=== PATIENT | male | born 1980 | race Two or more races ===

== ENCOUNTER 2019-10-06 16:00 | Inpatient (IN) | payer SELFPAY ==
[~2019-10-06] VITALS: Ht 177.8 cm; Wt 84.8 kg
[2019-10-06] MEDS ORDERED: cloNIDine HCL 0.1 MG TAB ONE (16:18)
[2019-10-06] MEDS ORDERED: SODIUM CHLORIDE 0.9% 1,000 ML IV ONE (16:21)
[2019-10-06] MEDS ORDERED: cloNIDine HCL 0.1 MG TAB PO ONE (16:30)
[2019-10-06 16:33] LABS: Basophils # (auto) 0.1 10 ^3/uL (0-0.2); Basophils % (auto) 0.7 % (0.0-2.0); Eosinophils # (auto) 0.2 10 ^3/uL (0-0.8); Eosinophils % (auto) 1.4 % (0.0-7.0); Hematocrit 33.3 % (41.0-53.0); Hemoglobin 10.8 g/dL (13.5-17.5); Lymphocytes # (auto) 0.9 10 ^3/uL (0.4-5.4); Mean Corpuscular Hemoglobin 29.8 pg (28.0-32.0); Mean Corpuscular Hgb Conc. 32.3 g/dL (32.0-36.0); Mean Corpuscular Volume 92.2 fL (80.0-100.0); Monocytes # (auto) 0.5 10 ^3/uL (0-1.3); Monocytes % (auto) 3.9 % (0.0-12.0); Neutrophils # (auto) 10.7 10 ^3/uL (1.6-8.6); Nucleated Red Blood Cells % 0.1 %; Platelet Count (auto) 290 10^3/uL (140-450); Red Blood Cells 3.61 10^6/uL (4.5-5.90); Red Cell Distribution Width 16.5 % (11.8-14.3); White Blood Cell 12.3 10^3/uL (4.4-10.8)
[2019-10-06 16:48] LABS: Albumin 3.6 g/dL (3.4-5.0); Calcium 8.4 mg/dL (8.5-10.1); Potassium 3.9 mmol/L (3.5-5.1)
[2019-10-06 16:54] LABS: BUN/Creatinine Ratio 11.6; Bilirubin, Total 1.2 mg/dL (0.2-1.0); Total Protein 7.5 g/dL (6.4-8.2)
[2019-10-06] MEDS ORDERED: LORazepam 0.5 MG TAB PO PRN (17:30)
[2019-10-06] MEDS ORDERED: ALUM & MAG HYDROX-SIMETH LIQ(MAALOX) 30 ML PO ONE (17:30)
[2019-10-06] MEDS ORDERED: MORPHINE SULFATE 4 MG/ML SYR/VIAL IV PRN (17:30)
[2019-10-06] MEDS ORDERED: ONDANSETRON HCL 4 MG/2 ML VIAL IV PRN ×2 (17:30→17:45)
[2019-10-06] MEDS ORDERED: NITROGLYCERIN 0.4 MG SL TAB SL PRN ×3 (17:30→17:45)
[2019-10-06] MEDS ORDERED: MORPHINE SULF INJ 2 MG/ML SYRINGE 1ML IV PRN ×3 (17:30→17:45)
[2019-10-06] MEDS ORDERED: HYDROcodone-ACET 5/325MG TAB PO PRN (17:45)
[2019-10-06 17:59] LABS: INR 1.04 (0.9-1.15)
[2019-10-06 18:40] LABS: Uric Acid 11.5 mg/dL (3.5-7.2)
[2019-10-06 20:09] LABS: Urine Bacteria FEW /hpf (None Seen); Urine Blood Negative /uL (Negative); Urine Specific Gravity 1.008 (1.001-1.035); Urine WBC 4 /hpf (0 - 3)
[2019-10-06] MEDS: cloNIDine HCL 0.1 MG TAB PO PRN (20:47)
[2019-10-06] MEDS ORDERED: METOPROLOL TARTRATE 25 MG TAB PO SCH (22:00)
[2019-10-06] MEDS ORDERED: ATORVASTATIN 20 MG TAB PO SCH (22:00)
--- NOTE | 2019-10-06 22:15 | NUR ---
Opening Shift Note Assumed care of patient, awake and alert, oriented x 4, follows direction, clear speech. On oxygen at 2L via NC with even and unlabored respirations, no S/S of distress/SOB. Patient denies chest pain. Bed in lowest locked position with side rails up x 2 and call light within reach. Instructed on POC and to call for assist PRN, will continue to monitor for changes Q1hr and PRN.
[2019-10-06] MEDS: ATORVASTATIN 20 MG TAB PO SCH (22:22)
[2019-10-06] MEDS: hydrALAZINE HCL 25 MG TAB PO SCH (22:23)
[2019-10-06] MEDS: FAMOTIDINE 20 MG TAB PO SCH (22:24)
[2019-10-06] MEDS: LABETALOL HCL 200 MG TAB PO SCH (22:24)
[2019-10-06 22:30] VITALS: BP 144/95
[2019-10-07 00:21] VITALS: BP 144/95
[2019-10-07] MEDS ORDERED: HYDR50TA15 PO (00:25)
[2019-10-07] MEDS ORDERED: METO-462 PO (00:25)
[2019-10-07] MEDS ORDERED: FURO1TAB33 PO (00:25)
[2019-10-07 05:00] VITALS: BP 136/87
[2019-10-07] MEDS: hydrALAZINE HCL 25 MG TAB PO SCH ×3 (05:57→21:43)
[2019-10-07 06:22] LABS: Potassium 3.7 mmol/L (3.5-5.1)
[2019-10-07 06:33] LABS: BUN/Creatinine Ratio 12.2; Calcium 7.5 mg/dL (8.5-10.1)
--- NOTE | 2019-10-07 06:57 | NUR ---
closing note patient resting in bed with even and unlabored respirations, noted chest rise and fall. no s/s of distress.
--- NOTE | 2019-10-07 07:30 | NUR ---
Opening Shift Note RECEIVED REPORT FROM NOC RN. Assumed care of patient, awake and alert. PATIENT IS ON OXYGEN AT 2 LPM VIA NASAL CANNULA WITH no S/S of distress/SOB or pain. BED IN LOWEST, LOCKED POSITION WITH SIDERAILS UP x2 AND CALL LIGHT WITHIN REACH. Instructed on POC and to call for assist PRN, will continue to monitor for changes Q1hr and PRN.
[2019-10-07 09:00] VITALS: BP 157/99
[2019-10-07] MEDS: LABETALOL HCL 200 MG TAB PO SCH ×2 (09:39→21:44)
[2019-10-07] MEDS: ASPirin-EC 81 mg tab PO SCH (09:39)
[2019-10-07] MEDS ORDERED: CLOPIDOGREL BISULFATE 75 MG TAB PO SCH (10:00)
[2019-10-07] MEDS ORDERED: DOCUSATE SOD 100 MG CAP PO SCH (10:00)
[2019-10-07] MEDS ORDERED: ASPirin 81 mg TAB PO SCH (10:00)
[2019-10-07] MEDS ORDERED: LISINOPRIL 20 MG TAB PO SCH (10:00)
[2019-10-07 13:00] VITALS: BP 152/96
[2019-10-07] MEDS ORDERED: ISOSORBIDE MONONITRATE ER 60 MG TAB PO ONE (14:15)
--- NOTE | 2019-10-07 14:20 | NUR ---
D/C Planning Per SS consult for outpatient dialysis Chair Time with [facility]. Faxed clinical information to [facility]. Placed call to Daysi with [facility] advising her Med-Renny is pending and provided her with Alfred phone number to get updates. Pending Chair Time.
[2019-10-07 14:46] LABS: Hepatitis B Surface Antibody Negative
[2019-10-07 15:24] LABS: Hepatitis A Total Antibody Positive
[2019-10-07 15:43] LABS: Hepatitis B Surface Antigen Negative (Negative)
[2019-10-07 15:44] LABS: Hepatitis B Core Total AB Negative; Hepatitis C Antibody Negative (Negative)
[2019-10-07 16:49] VITALS: BP 161/102
--- NOTE | 2019-10-07 18:06 | NUR ---
RECORDS REQUEST FAXED TO [employer] AT [facility].
[2019-10-07] MEDS: CALCIUM ACETATE 667 MG CAP PO SCH (18:27)
[2019-10-07] MEDS: ATORVASTATIN 20 MG TAB PO SCH (21:43)
[2019-10-07] MEDS: FAMOTIDINE 20 MG TAB PO SCH (21:43)
[2019-10-07 22:00] VITALS: BP 162/97
[2019-10-08 05:00] VITALS: BP_SYST 144; BP_SYST 184; BP_DIAS 111; BP_DIAS 79
[2019-10-08] MEDS: hydrALAZINE HCL 25 MG TAB PO SCH ×3 (05:16→21:53)
[2019-10-08 05:58] LABS: Basophils # (auto) 0 10 ^3/uL (0-0.2); Basophils % (auto) 0.4 % (0.0-2.0); Eosinophils # (auto) 0.1 10 ^3/uL (0-0.8); Eosinophils % (auto) 1.5 % (0.0-7.0); Hematocrit 25.6 % (41.0-53.0); Hemoglobin 8.5 g/dL (13.5-17.5); Lymphocytes % (auto) 10.3 % (10.0-50.0); Mean Corpuscular Hemoglobin 30.6 pg (28.0-32.0); Mean Corpuscular Hgb Conc. 33.1 g/dL (32.0-36.0); Mean Corpuscular Volume 92.5 fL (80.0-100.0); Monocytes # (auto) 0.5 10 ^3/uL (0-1.3); Monocytes % (auto) 5.5 % (0.0-12.0); Neutrophils # (auto) 7.8 10 ^3/uL (1.6-8.6); Neutrophils % (auto) 82.3 % (37.0-80.0); Platelet Count (auto) 228 10^3/uL (140-450); Red Blood Cells 2.76 10^6/uL (4.5-5.90); White Blood Cell 9.5 10^3/uL (4.4-10.8)
[2019-10-08 06:09] VITALS: BP 164/106
[2019-10-08] MEDS: cloNIDine HCL 0.1 MG TAB PO PRN ×2 (06:13→23:38)
[2019-10-08 06:32] LABS: Potassium 3.5 mmol/L (3.5-5.1)
[2019-10-08 06:49] LABS: Albumin 2.8 g/dL (3.4-5.0); BUN/Creatinine Ratio 12.3; Bilirubin, Total 0.5 mg/dL (0.2-1.0); Calcium 7.3 mg/dL (8.5-10.1); Magnesium 2.6 mg/dL (1.6-2.6); Total Protein 6.2 g/dL (6.4-8.2)
[2019-10-08] MEDS ORDERED: SODIUM CHL 0.9% 1000 ML BAG XX ONE (07:00)
--- NOTE | 2019-10-08 07:45 | NUR ---
OPENING NOTES ASSUMED CARE OF PT. ALERT AND ORIENTED. NO S/S OF SOB/DISTRESS NOTED. BED SET TO LOWEST POSITION/LOCKED. BEDSIDE RAILS UP X2. CALL LIGHT WITHIN REACH. INSTRUCTED PT TO CALL FOR ASSISTANCE. UPDATE ON POC. PT VERBALIZED UNDERSTANDING. WILL CONTINUE TO MONITOR Q1HR AND PRN.
[2019-10-08] MEDS: CALCIUM ACETATE 667 MG CAP PO SCH ×3 (08:00→18:40)
[2019-10-08] MEDS: BUMETANIDE 2.5mg/10ml (0.25 mg/ml) INJ IV SCH (08:56)
[2019-10-08] MEDS: ASPirin-EC 81 mg tab PO SCH (08:57)
[2019-10-08] MEDS: B-COMPLEX W/ C & FOLIC ACID(NEPHROVITE TAB) PO SCH (08:57)
[2019-10-08] MEDS ORDERED: LIDOCAINE 2%HCL (LOCAL ANESTH.) INJ 20ML MDV ONE (08:57)
[2019-10-08] MEDS: LABETALOL HCL 200 MG TAB PO SCH (08:58)
[2019-10-08] MEDS: ALLOPURINOL 100 MG TAB PO SCH (08:59)
[2019-10-08 09:00] VITALS: BP 167/119
[2019-10-08] MEDS: ISOSORBIDE MONONITRATE ER 60 MG TAB PO SCH (09:00)
--- NOTE | 2019-10-08 09:24 | NUR ---
OFF UNIT PATIENT OFF UNIT VIA BED TO ACCESS CLINICIAN. NO S/S OF SOB/DISTRESS.
[2019-10-08] MEDS ORDERED: HEPARIN SODIUM (PORCINE) 5000 UNITS/ML 1ML VIAL ONE (09:47)
[2019-10-08] MEDS ORDERED: fentaNYL CITRATE 100 MCG/2 ML VL ONE (09:47)
[2019-10-08] MEDS ORDERED: MIDAZOLAM HCL 1MG/1ML-2 ML VIAL ONE (09:47)
[2019-10-08 12:58] VITALS: BP 161/99
--- NOTE | 2019-10-08 13:20 | NUR ---
MEDICAL RECORDS FROM [facility] IN PATIENTS CHART.
[2019-10-08] MEDS: ERGOCALCIFEROL 50,000 UNIT(1.25MG) CAP PO SCH (14:01)
[2019-10-08] MEDS ORDERED: CARVEDILOL 3.125 MG TAB PO ONE (14:15)
[2019-10-08 16:55] VITALS: BP 164/115
[2019-10-08] MEDS ORDERED: LACTULOSE 20Gm/30ML SOLN PO PRN (18:30)
--- NOTE | 2019-10-08 19:26 | NUR ---
Opening Shift Note Assumed care of patient, awake and alert. No S/S of distress/SOB or pain. Patient on 2L NC and tolerating well SPO2 98%. Patient has no complaints at this time. Instructed on POC and to call for assistance PRN, will continue to monitor for changes Q1hr and PRN. Safety precautions maintained bed is in lowest position and bed rails 2x. Call light and bedside table are within reach.
--- NOTE | 2019-10-08 20:18 | NUR ---
Hemodialysis orders changed Per [facility] dialysis coordinator, Dr. Fried states that hemodialysis will be rescheduled for tomorrow morning. Made charge nurse aware. At this time patient has no s/s of distress or SOB. Will continue to monitor Q1 and PRN.
[2019-10-08] MEDS ORDERED: EPOETIN ALFA 4,000 UNIT/ML VL SC ONE (21:00)
[2019-10-08] MEDS: ATORVASTATIN 20 MG TAB PO SCH (21:54)
[2019-10-08] MEDS: FAMOTIDINE 20 MG TAB PO SCH (21:54)
[2019-10-08] MEDS: CARVEDILOL 3.125 MG TAB PO SCH (21:54)
[2019-10-08] MEDS: DOCUSATE SOD 100 MG CAP PO SCH (21:54)
[2019-10-08 22:00] VITALS: BP 178/118
--- NOTE | 2019-10-08 23:38 | NUR ---
Elevated blood pressure Patient BP 180/122 HR 79 SPO2 98%, no complaints of pain. Medicated per MD orders, PRN clonidine. Patient is on 2L NC and tolerating well. At this time no s/s of distress or SOB. Will continue to monitor Q1 and PRN.
[2019-10-09] VITALS (7 sets, daily range): BP systolic 153–189; BP diastolic 88–125
--- NOTE | 2019-10-09 00:30 | NUR ---
Blood Pressure Reassessment BP 153/93 HR 73 SPO2 98%, no complaints of pain at this time. Patient has no s/s of distress or SOB. Will continue to monitor Q1 and PRN. Call light and bedside table are within reach.
--- NOTE | 2019-10-09 02:50 | NUR ---
Rounding Patient resting in bed, has no s/s of distress or SOB. Patient responsive to name and has no complaints at this time. Patient on 2L NC SPO2 98%, and tolerating well. Will continue to monitor Q1 and PRN.
[2019-10-09 05:43] LABS: BUN/Creatinine Ratio 11.9; Calcium 7.6 mg/dL (8.5-10.1); Potassium 3.8 mmol/L (3.5-5.1)
[2019-10-09] MEDS: hydrALAZINE HCL 25 MG TAB PO SCH ×3 (06:00→22:13)
[2019-10-09] MEDS ORDERED: SODIUM CHL 0.9% 1000 ML BAG XX ONE (07:00)
--- NOTE | 2019-10-09 07:18 | NUR ---
End of Shift Note Endorsed care to Tiffanie OSULLIVAN. Patient has no s/s of distress or SOB. Patient awakens to name.
[2019-10-09 07:52] LABS: Hemoglobin 8.4 g/dL (13.5-17.5)
[2019-10-09 07:55] LABS: Hematocrit 25.1 % (41.0-53.0)
--- NOTE | 2019-10-09 08:00 | NUR ---
Opening Shift Note Assumed care of patient, who is alert and oriented x4. No S/S of distress/SOB or pain. Bed is low, locked with 2x side rails up. Call light is within reach. Instructed on POC and to call for assist PRN, will continue to monitor for changes Q1hr and PRN.
[2019-10-09 08:05] LABS: % Iron Saturation 16.3 % (20-55)
--- NOTE | 2019-10-09 09:47 | NUR ---
Dialysis nurse At bedside.
[2019-10-09] MEDS: ALLOPURINOL 100 MG TAB PO SCH (10:00)
[2019-10-09] MEDS ORDERED: LOSARTAN POTASSIUM 50 MG TAB PO ONE (13:00)
--- NOTE | 2019-10-09 13:15 | NUR ---
Dialysis 2.5 L out.
[2019-10-09] MEDS: BUMETANIDE 2.5mg/10ml (0.25 mg/ml) INJ IV SCH (13:20)
[2019-10-09] MEDS: ISOSORBIDE MONONITRATE ER 60 MG TAB PO SCH (13:20)
[2019-10-09] MEDS: CARVEDILOL 3.125 MG TAB PO SCH (13:21)
[2019-10-09] MEDS: DOCUSATE SOD 100 MG CAP PO SCH ×2 (13:21→22:12)
[2019-10-09] MEDS: B-COMPLEX W/ C & FOLIC ACID(NEPHROVITE TAB) PO SCH (13:22)
[2019-10-09] MEDS: ASPirin-EC 81 mg tab PO SCH (13:22)
[2019-10-09] MEDS: CALCIUM ACETATE 667 MG CAP PO SCH ×3 (13:22→17:38)
[2019-10-09] MEDS: IRON SUCROSE COMPLEX 200 MG in SODIUM CHL 0.9% 100 ML IV SCH (13:41)
[2019-10-09] MEDS ORDERED: hydrALAZINE HCL 20 MG/ML VL IV PRN (14:15)
--- NOTE | 2019-10-09 15:50 | NUR ---
IV insertion IV access obtained, via clean sterile technique by inserting a 20 gauge catheter to the left FA after 1 attempt(s). IV secured properly. No trauma to site. Patient tolerated well. IV to right upper arm/bicep is infiltrated. Removed catheter with clean technique. 20 g catheter fully intact. Patient tolerated well. Will continue to monitor.
[2019-10-09] MEDS: ACETAMINOPHEN 500 MG TAB PO PRN (17:39)
--- NOTE | 2019-10-09 17:39 | NUR ---
Pain Patient reporting 8/10 right flank pain on adult pain scale. This nurse educated patient on the type of medications he has available to him based on his pain rating. Patient requested a PRN Tylenol. Medicated patient with Tylenol at this time per MD order (see emar). Educated patient that if pain persists, he does have other options. Patient verbalized understanding.
--- NOTE | 2019-10-09 19:10 | NUR ---
Opening Shift Note Assumed care of patient, awake and alert. No S/S of distress/SOB or pain. Instructed on POC and to call for assist PRN, will continue to monitor for changes Q1hr and PRN. Safety precautions maintained bed is in lowest position and locked, bed rails 2x. Call light and bedside table are within reach.
[2019-10-09] MEDS ORDERED: EPOETIN ALFA 10,000 UNIT/1 ML VIAL SC ONE (21:00)
[2019-10-09] MEDS: CARVEDILOL 12.5 MG TAB PO SCH (22:13)
[2019-10-09] MEDS: ATORVASTATIN 20 MG TAB PO SCH (22:14)
[2019-10-09] MEDS: FAMOTIDINE 20 MG TAB PO SCH (22:14)
[2019-10-10] MEDS ORDERED: NAPROXEN 500 MG TAB PO PRN ×2 (02:45→03:30)
[2019-10-10 05:00] VITALS: BP 150/87
[2019-10-10] MEDS: hydrALAZINE HCL 25 MG TAB PO SCH ×3 (05:37→22:24)
--- NOTE | 2019-10-10 07:20 | NUR ---
End of Shift Note Endorsed care to Tiffanie OSULLIVAN. At this time patient has no s/s of distress or SOB and awakens to name and touch, no complaints.
[2019-10-10 07:39] LABS: Basophils # (auto) 0 10 ^3/uL (0-0.2); Basophils % (auto) 0.3 % (0.0-2.0); Eosinophils # (auto) 0.2 10 ^3/uL (0-0.8); Hematocrit 26.9 % (41.0-53.0); Hemoglobin 9.1 g/dL (13.5-17.5); Lymphocytes % (auto) 12.5 % (10.0-50.0); Mean Corpuscular Hemoglobin 30.8 pg (28.0-32.0); Mean Corpuscular Hgb Conc. 33.8 g/dL (32.0-36.0); Mean Corpuscular Volume 91.2 fL (80.0-100.0); Monocytes # (auto) 0.6 10 ^3/uL (0-1.3); Monocytes % (auto) 7.9 % (0.0-12.0); Neutrophils % (auto) 77.3 % (37.0-80.0); Platelet Count (auto) 225 10^3/uL (140-450); Red Blood Cells 2.95 10^6/uL (4.5-5.90); White Blood Cell 7.8 10^3/uL (4.4-10.8)
[2019-10-10 07:59] LABS: BUN/Creatinine Ratio 10.4; Calcium 8.1 mg/dL (8.5-10.1); Potassium 3.5 mmol/L (3.5-5.1)
[2019-10-10] MEDS: CALCIUM ACETATE 667 MG CAP PO SCH ×3 (08:03→17:39)
[2019-10-10 09:00] VITALS: BP 148/96
[2019-10-10] MEDS: ALLOPURINOL 100 MG TAB PO SCH (10:00)
[2019-10-10] MEDS: DOCUSATE SOD 100 MG CAP PO SCH ×2 (10:13→22:00)
[2019-10-10] MEDS: BUMETANIDE 2.5mg/10ml (0.25 mg/ml) INJ IV SCH (10:13)
[2019-10-10] MEDS: ASPirin-EC 81 mg tab PO SCH (10:14)
[2019-10-10] MEDS: B-COMPLEX W/ C & FOLIC ACID(NEPHROVITE TAB) PO SCH (10:14)
[2019-10-10] MEDS: CARVEDILOL 12.5 MG TAB PO SCH ×2 (10:14→17:39)
[2019-10-10] MEDS: ISOSORBIDE MONONITRATE ER 60 MG TAB PO SCH (10:15)
[2019-10-10] MEDS ORDERED: SODIUM FERR GLUC 62.5MG/5ML 125 MG in SODIUM CHL 0.9% 100 ML IV SCH (12:00)
[2019-10-10] MEDS: LACTULOSE 20Gm/30ML SOLN PO PRN (12:08)
[2019-10-10 13:00] VITALS: BP 154/99
[2019-10-10] MEDS: LOSARTAN POTASSIUM 25 MG TAB PO SCH (13:15)
[2019-10-10] MEDS: IRON SUCROSE COMPLEX 200 MG in SODIUM CHL 0.9% 100 ML IV SCH (13:15)
[2019-10-10 17:06] VITALS: BP 166/97
[2019-10-10] MEDS: cloNIDine HCL 0.1 MG TAB PO PRN (17:38)
[2019-10-10 18:39] VITALS: BP 152/95
--- NOTE | 2019-10-10 19:18 | NUR ---
Opening Shift Note Assumed care of patient, awake, alert and oriented x4. No S/S of distress/SOB or pain. Instructed on POC and to call for assist PRN, will continue to monitor for changes Q1hr and PRN. Safety precautions maintained bed is in lowest position and locked, bed rails 2x. Call light and bedside table are within reach.
[2019-10-10 22:00] VITALS: BP 155/95
[2019-10-10] MEDS: FAMOTIDINE 20 MG TAB PO SCH (22:25)
[2019-10-10] MEDS: ATORVASTATIN 20 MG TAB PO SCH (22:25)
--- NOTE | 2019-10-11 03:40 | NUR ---
Mild bleeding at right upper chest tunneled cath dressing site observed, at this time no persistent bleeding observed. No redness or swelling observed. Patient denies pain or discomfort, and SOB. Patient has no s/s of distress or SOB, alert and oriented x4. Reinforced dressing. Informed charge nurse. Will continue to monitor patient Q1 and PRN.
[2019-10-11 05:00] VITALS: BP 160/92
[2019-10-11] MEDS: hydrALAZINE HCL 25 MG TAB PO SCH ×4 (05:52→18:00)
[2019-10-11 06:35] LABS: BUN/Creatinine Ratio 9.2; Calcium 8.2 mg/dL (8.5-10.1); Potassium 3.6 mmol/L (3.5-5.1)
--- NOTE | 2019-10-11 07:25 | NUR ---
End of Shift Note Endorsed care to Linda RN. Made nurse aware of mild bleeding at Right upper chest tunnel catheter. At this time patient has no s/s of distress or SOB, alert and oriented x4. Patient denies pain or discomfort at site. No swelling or redness observed.
[2019-10-11 08:00] VITALS: BP 173/105
--- NOTE | 2019-10-11 08:00 | NUR ---
PATIENT HAVING HIGH BLOOD PRESSURE 173/105 HR 69, ASYMPTOMATIC. PATIENT MEDICATED PER EMAR, WILL MONITOR AND REASSESS.
[2019-10-11] MEDS: CALCIUM ACETATE 667 MG CAP PO SCH ×3 (08:03→18:00)
[2019-10-11] MEDS: CARVEDILOL 12.5 MG TAB PO SCH ×2 (08:04→22:52)
--- NOTE | 2019-10-11 08:20 | NUR ---
Opening Shift Note Assumed care of patient, awake and alert. No S/S of distress/SOB or pain. Instructed on POC and to call for assist PRN, will continue to monitor for changes Q1hr and PRN. Bed locked in lowest position with two side rails up and call light in reach.
--- NOTE | 2019-10-11 08:30 | NUR ---
PATIENT BRENDA CATH SITE BLEEDING, HAY CHOPPER REINFORCED . I ALSO REINFORCED SITE IS STILL DRIPPING WITH THE POOLED BLOOD. CALLED DR MARTIN OFFICE NO ANSWER OR MESSAGE LEFT DUE TO NO ANSWERING SERVICE, LAST MD TO SEE PATIENT DR SHAIKH NASH. WILL CONTINUE TO MONITOR AND REINFORCE WITH GAUZE, PATIENT REFUSING TAPE HE STATES IT WILL ITCH.
[2019-10-11 09:00] VITALS: BP 173/105
[2019-10-11] MEDS: B-COMPLEX W/ C & FOLIC ACID(NEPHROVITE TAB) PO SCH (09:38)
[2019-10-11] MEDS: BUMETANIDE 2.5mg/10ml (0.25 mg/ml) INJ IV SCH (09:38)
[2019-10-11] MEDS: ASPirin-EC 81 mg tab PO SCH (09:38)
[2019-10-11] MEDS: ALLOPURINOL 100 MG TAB PO SCH (09:39)
[2019-10-11] MEDS: LOSARTAN POTASSIUM 25 MG TAB PO SCH (09:39)
[2019-10-11] MEDS: DOCUSATE SOD 100 MG CAP PO SCH ×2 (09:39→22:51)
[2019-10-11] MEDS: ISOSORBIDE MONONITRATE ER 60 MG TAB PO SCH (09:39)
--- NOTE | 2019-10-11 10:23 | NUR ---
CHECKED CATHETER SITE AND LIGHT BLOOD NOTED FROM PREVIOUS POOLING . REINFORCED, STILL AWAITING CALL BACK.
[2019-10-11] MEDS: cloNIDine HCL 0.1 MG TAB PO PRN ×2 (10:37→17:19)
[2019-10-11] MEDS ORDERED: ISOSORBIDE MONONITRATE ER 60 MG TAB PO ONE (10:45)
[2019-10-11] MEDS ORDERED: SACUBITRIL-VALSARTAN 24mg/26mg TAB PO ONE (11:00)
[2019-10-11] MEDS ORDERED: hydrALAZINE HCL 25 MG TAB PO PRN (11:00)
--- NOTE | 2019-10-11 11:46 | NUR ---
NOTIFIED DR MUNOZ OF PATIENTS BLEEDING CATHETER, PER DR MUNOZ CONTACT DR MATRIN. I CANOTACTED DR MARTIN AND NOTIFIED OF CATHETER SITE. PER DR MARTIN HE WILL SEE THE PATIENT.
[2019-10-11] MEDS: IRON SUCROSE COMPLEX 200 MG in SODIUM CHL 0.9% 100 ML IV SCH (11:55)
--- NOTE | 2019-10-11 12:20 | NUR ---
PATIENT REFUSING IV IRON SUPPLEMENT KAITLYNN , STATES YESTERDAYS IV INFILTRATED AND IT WAS CAUSING DISCOMFORT. EDUCATED PATIENT ON MEDICATION AND PATIENT STILL REFUSING.
--- NOTE | 2019-10-11 12:30 | NUR ---
PATIENT REFUSED HYDRALAZINE AT THIS TIME STATES HE WILL WAIT A LITTLE BIT HE CURRENTLY FEELS DIZZY. PATIENTS BLOOD PRESSURE IS 133/[address] BALDWIN AWARE OF NON ADMIN OF JONE, AND AMANDA
[2019-10-11 13:00] VITALS: BP 133/91
[2019-10-11] MEDS ORDERED: SODIUM CHL 0.9% 1000 ML BAG XX ONE (13:15)
--- NOTE | 2019-10-11 13:30 | NUR ---
dialysis catheter dressing changed. new biopatch and tegaderm applied. 2 lb sand bag over site and will observe
[2019-10-11] MEDS ORDERED: LIDOCAINE 2%HCL (LOCAL ANESTH.) INJ 20ML MDV ONE (15:17)
[2019-10-11] MEDS: ACETAMINOPHEN 500 MG TAB PO PRN (17:18)
--- NOTE | 2019-10-11 17:19 | NUR ---
PATIENT C/O PAIN HEADACHE 11/16 OFFERED A STRONGER MEDICATION BUT PATIENT REFUSED STATES HE WOULD RATHER HAVE TYLENOL.
--- NOTE | 2019-10-11 19:01 | NUR ---
MEDICATION HELD FOR DIALYSIS
[2019-10-11] MEDS ORDERED: EPOETIN ALFA 10,000 UNIT/1 ML VIAL SC ONE (21:00)
[2019-10-11 22:00] VITALS: BP 138/85
--- NOTE | 2019-10-11 22:15 | NUR ---
DIALYSIS FINISHED Per dialysis nurse, 2.9L have been removed during dialysis. Vitals are stable. Will continue to monitor the patient's status. Addendum: 10/12/19 at 0700 by Abner Escalante RN 2.5L*
[2019-10-11] MEDS: FAMOTIDINE 20 MG TAB PO SCH (22:50)
[2019-10-11] MEDS: SACUBITRIL-VALSARTAN 24mg/26mg TAB PO SCH (22:50)
[2019-10-11] MEDS: ATORVASTATIN 20 MG TAB PO SCH (22:51)
[2019-10-12] MEDS: hydrALAZINE HCL 25 MG TAB PO SCH ×4 (00:22→21:49)
[2019-10-12 05:00] VITALS: BP 135/88
[2019-10-12 05:55] LABS: Basophils # (auto) 0 10 ^3/uL (0-0.2); Basophils % (auto) 0.3 % (0.0-2.0); Eosinophils # (auto) 0.2 10 ^3/uL (0-0.8); Eosinophils % (auto) 1.6 % (0.0-7.0); Hematocrit 32.4 % (41.0-53.0); Hemoglobin 10.6 g/dL (13.5-17.5); Lymphocytes # (auto) 1.2 10 ^3/uL (0.4-5.4); Mean Corpuscular Hemoglobin 30.3 pg (28.0-32.0); Mean Corpuscular Hgb Conc. 32.6 g/dL (32.0-36.0); Mean Corpuscular Volume 92.9 fL (80.0-100.0); Monocytes # (auto) 0.7 10 ^3/uL (0-1.3); Monocytes % (auto) 7.1 % (0.0-12.0); Neutrophils # (auto) 7.6 10 ^3/uL (1.6-8.6); Nucleated Red Blood Cells % 0.1 %; Platelet Count (auto) 248 10^3/uL (140-450); Red Blood Cells 3.49 10^6/uL (4.5-5.90); Red Cell Distribution Width 16.1 % (11.8-14.3); White Blood Cell 9.7 10^3/uL (4.4-10.8)
[2019-10-12 06:26] LABS: Potassium 3.5 mmol/L (3.5-5.1)
[2019-10-12 06:30] LABS: Calcium 8.2 mg/dL (8.5-10.1)
--- NOTE | 2019-10-12 07:00 | NUR ---
Opening Shift Note Received report on the patient. Awake lying in bed. Patient shows no signs of distress at this time. Discussed the plan of care with the patient. Bed in lowest position, side rails up x2, and the call light is within reach. Will continue to monitor.
[2019-10-12] MEDS: CALCIUM ACETATE 667 MG CAP PO SCH ×3 (08:42→17:57)
[2019-10-12 09:00] VITALS: BP 155/92
[2019-10-12] MEDS: ALLOPURINOL 100 MG TAB PO SCH ×2 (10:00→10:16)
[2019-10-12] MEDS ORDERED: ISOSORBIDE MONONITRATE ER 60 MG TAB PO SCH (10:00)
[2019-10-12] MEDS: DOCUSATE SOD 100 MG CAP PO SCH ×2 (10:15→21:50)
[2019-10-12] MEDS: CARVEDILOL 12.5 MG TAB PO SCH ×2 (10:16→21:50)
[2019-10-12] MEDS: ISOSORBIDE MONONITRATE ER 60 MG TAB PO SCH (10:16)
[2019-10-12] MEDS: SACUBITRIL-VALSARTAN 24mg/26mg TAB PO SCH ×2 (10:16→21:51)
[2019-10-12] MEDS: B-COMPLEX W/ C & FOLIC ACID(NEPHROVITE TAB) PO SCH (10:17)
--- NOTE | 2019-10-12 11:31 | NUR ---
Dr Espinoza at bedside. New orders received
--- NOTE | 2019-10-12 11:57 | NUR ---
Ob Gyn Physician Assistant Called Laurel to follow up on the chair time for the patient. Laurel stated that the insurance is still pending.
[2019-10-12] MEDS: IRON SUCROSE COMPLEX 200 MG in SODIUM CHL 0.9% 100 ML IV SCH ×2 (12:00→12:44)
[2019-10-12] MEDS ORDERED: CHOL400T13 PO (12:31)
[2019-10-12] MEDS ORDERED: SACU1TAB PO (12:31)
[2019-10-12] MEDS ORDERED: ASP81EC PO (12:31)
[2019-10-12] MEDS ORDERED: ISO60SRT PO (12:31)
[2019-10-12] MEDS ORDERED: CARV25TA PO (12:31)
[2019-10-12] MEDS ORDERED: NEPVITT PO (12:31)
[2019-10-12] MEDS ORDERED: ALL100T PO (12:31)
[2019-10-12] MEDS ORDERED: HYDR50TA15 PO (12:31)
[2019-10-12] MEDS ORDERED: CALC667C5 PO (12:31)
[2019-10-12] MEDS ORDERED: ATO40T PO (12:31)
[2019-10-12] MEDS ORDERED: ATOR20TA PO (12:31)
[2019-10-12] MEDS ORDERED: PANT40TA2 PO (12:31)
--- NOTE | 2019-10-12 12:35 | NUR ---
Nutrition Assessment Notes Please refer to link for full assessment notes. Est Energy needs: 1355-7121 kcals (17-20 kcal/kgBW) Est Protein needs: 123-135 gms/day (1.1-1.2 gm/kgBW) Will continue to monitor and reassess prn. Addendum: 10/12/19 at [address] Amended: Links added.
[2019-10-12] MEDS ORDERED: hydrALAZINE HCL 25 MG TAB PO PRN (14:00)
[2019-10-12 17:00] VITALS: BP 140/82
--- NOTE | 2019-10-12 17:57 | NUR ---
Patient stated that he was having trouble urinating and that his kidneys hurt. Patient stated that he "drank a lot of water, but has only urinated 200ml". Paged Dr Valentin twice to inform her of the patient's status with no return call. I bladder scanned the patient and there was only 18ml of urine. Patient wanted Tylenol.
[2019-10-12] MEDS: ACETAMINOPHEN 500 MG TAB PO PRN (18:00)
--- NOTE | 2019-10-12 19:25 | NUR ---
Opening Shift Note Assumed care of patient, awake and alert. No S/S of distress/SOB or pain. Instructed on POC and to call for assist PRN, will continue to monitor for changes Q1hr and PRN.
[2019-10-12] MEDS: ATORVASTATIN 20 MG TAB PO SCH (21:51)
[2019-10-12] MEDS: FAMOTIDINE 20 MG TAB PO SCH (21:51)
[2019-10-12] MEDS: TEMAZEPAM 15 MG CAP PO PRN (21:52)
[2019-10-12 22:00] VITALS: BP 153/90
[2019-10-13 05:00] VITALS: BP 141/85
[2019-10-13] MEDS: hydrALAZINE HCL 25 MG TAB PO SCH ×3 (05:53→22:13)
--- NOTE | 2019-10-13 07:00 | NUR ---
Opening Shift Note Received report from the patient. Awake lying in bed. Discussed the plan of care with the patient. Patient shows no signs of distress at this time. Bed in lowest position, side rails up x2, and call light is within reach. Will continue to monitor.
[2019-10-13] MEDS ORDERED: SODIUM CHL 0.9% 1000 ML BAG XX ONE (07:45)
[2019-10-13] MEDS: CALCIUM ACETATE 667 MG CAP PO SCH ×3 (08:26→18:49)
[2019-10-13 09:00] VITALS: BP 160/102
[2019-10-13] MEDS: ALLOPURINOL 100 MG TAB PO SCH ×2 (10:00→11:33)
[2019-10-13] MEDS: DOCUSATE SOD 100 MG CAP PO SCH ×3 (10:00→22:14)
[2019-10-13] MEDS: CARVEDILOL 12.5 MG TAB PO SCH ×2 (11:30→22:14)
[2019-10-13] MEDS: SACUBITRIL-VALSARTAN 24mg/26mg TAB PO SCH ×2 (11:32→22:14)
[2019-10-13] MEDS: B-COMPLEX W/ C & FOLIC ACID(NEPHROVITE TAB) PO SCH (11:33)
[2019-10-13] MEDS: ISOSORBIDE MONONITRATE ER 60 MG TAB PO SCH (11:33)
[2019-10-13] MEDS ORDERED: LACTULOSE 20Gm/30ML SOLN PO PRN (11:45)
[2019-10-13] MEDS: IRON SUCROSE COMPLEX 200 MG in SODIUM CHL 0.9% 100 ML IV SCH (11:46)
[2019-10-13] MEDS: LACTULOSE 20Gm/30ML SOLN PO PRN (11:52)
[2019-10-13 13:00] VITALS: BP 158/109
[2019-10-13 14:31] LABS: Urine Bacteria FEW /hpf (None Seen); Urine Blood Negative /uL (Negative); Urine WBC 28 /hpf (0 - 3)
[2019-10-13 16:37] VITALS: BP 135/88
--- NOTE | 2019-10-13 19:30 | NUR ---
Opening Shift Note Assumed care of patient, awake and alert x4. No S/S of distress/SOB or pain. Life vest is on person. Call light is within reach, side rails up x2, bed is in the lowest position. Instructed on POC and to call for assist PRN, will continue to monitor for changes Q1hr and PRN.
--- NOTE | 2019-10-13 20:28 | NUR ---
Discharge held Pending insurance and chair time at dialysis.
[2019-10-13] MEDS ORDERED: EPOETIN ALFA 10,000 UNIT/1 ML VIAL SC ONE (21:00)
[2019-10-13 22:00] VITALS: BP 136/95
[2019-10-13] MEDS: FAMOTIDINE 20 MG TAB PO SCH (22:00)
[2019-10-13] MEDS: ATORVASTATIN 20 MG TAB PO SCH (22:14)
[2019-10-14 05:00] VITALS: BP 128/79
[2019-10-14] MEDS: hydrALAZINE HCL 25 MG TAB PO SCH ×3 (05:40→22:11)
[2019-10-14] MEDS: CALCIUM ACETATE 667 MG CAP PO SCH ×3 (07:41→18:10)
[2019-10-14 09:00] VITALS: BP 127/78
[2019-10-14] MEDS: ALLOPURINOL 100 MG TAB PO SCH (10:00)
[2019-10-14] MEDS: DOCUSATE SOD 100 MG CAP PO SCH ×2 (10:00→22:00)
--- NOTE | 2019-10-14 10:00 | NUR ---
Patient requested to take a shower. Explained to patient that we have to wait for the doctor if it's okay for him to be off Telemetry to take a shower. Offered face towels to patient so he can wipe himself in the bathroom but patient refused.
--- NOTE | 2019-10-14 10:00 | NUR ---
Patient refused Colace and Allopurinol.
[2019-10-14] MEDS: ISOSORBIDE MONONITRATE ER 60 MG TAB PO SCH (10:01)
[2019-10-14] MEDS: B-COMPLEX W/ C & FOLIC ACID(NEPHROVITE TAB) PO SCH (10:01)
[2019-10-14] MEDS: SACUBITRIL-VALSARTAN 24mg/26mg TAB PO SCH ×2 (10:02→22:11)
[2019-10-14] MEDS: CARVEDILOL 12.5 MG TAB PO SCH ×2 (10:03→22:11)
--- NOTE | 2019-10-14 10:04 | NUR ---
Patient asked if he can go downstairs to see his kids. Explained to patient that no visitors allowed, he can sign the AMA form to smoke off unit but due to pandemic, he or his kids will be high risk for transmission. Patient said he will not go downstairs.
--- NOTE | 2019-10-14 10:28 | NUR ---
Patient sitting up in chair at this time.
--- NOTE | 2019-10-14 10:30 | NUR ---
Dr. Valentin said patient can take a shower.
--- NOTE | 2019-10-14 10:30 | NUR ---
Dr. Valentin came over. ordered to discharge the patient when the chair time for hemodialysis as outpatient is arranged.
[2019-10-14] MEDS: IRON SUCROSE COMPLEX 200 MG in SODIUM CHL 0.9% 100 ML IV SCH (12:00)
--- NOTE | 2019-10-14 12:08 | NUR ---
Patient sitting in chair, stated he's feeling dizzy. Patient got up from the chair and went back to bed. No untoward incident noted.
--- NOTE | 2019-10-14 12:10 | NUR ---
Patient refused the Venofer/Iron Sucrose drip.
--- NOTE | 2019-10-14 12:18 | NUR ---
BP = 97/67, Heart rate = 74, RR = 20, O2 Sat = 98% on room air.
--- NOTE | 2019-10-14 12:18 | NUR ---
Explained to patient that his blood pressure is low, 97/67. Patient made aware the Venofer/Iron Sucrose drip as ordered could help increase his blood pressure. Patient still refused the Venofer drip.
--- NOTE | 2019-10-14 12:49 | NUR ---
Patient eating lunch.
--- NOTE | 2019-10-14 12:50 | NUR ---
Instructions given to patient to press the call light when he's ready to take a shower so I could cover his IV site on the left forearm and take off his Telemetry pack. Additional Tegaderm applied on the right upper chest Trevor cath. Patient verbalized understanding.
--- NOTE | 2019-10-14 12:50 | NUR ---
Patient stated he received the shampoo from home.
[2019-10-14 13:00] VITALS: BP 111/63
--- NOTE | 2019-10-14 13:16 | NUR ---
D/C planning Received a follow up call from Kavitha turk [facility] at 13:15 advising me patient has been medical clear but they are still pending insurance clearance. Pending chair-time.
--- NOTE | 2019-10-14 14:08 | NUR ---
BP = 111/76, Heart rate = 81, Temp = 98.2 F, RR = 21, O2 Sat = 99% at 2 LPM. Hold Apresoline.
--- NOTE | 2019-10-14 16:17 | NUR ---
re-assessment Per Alfred Maloney from [facility] he has been provided a letter from Dr Valentin for dialysis. Per Alfred he trying to get [facility] in place [facility]. I will notify Dr Jack and let him know patient cannot be discharged until [facility] is in place for dialysis. Addendum: 10/14/19 at 1627 by Genesis CONTE I will notify Dr Shaikh kin Jack. Addendum: 10/14/19 at 1630 by Genesis CONTE Amended: Links added.
--- NOTE | 2019-10-14 16:26 | NUR ---
re-assessment Dr Valentin has been notified that patient cannot be discharge until [facility] is in place for dialysis. Addendum: 10/14/19 at 1630 by Genesis CONTE Amended: Links added.
--- NOTE | 2019-10-14 17:15 | NUR ---
BP = 131/91, Heart rate = 81.
--- NOTE | 2019-10-14 18:05 | NUR ---
Patient done with shower. Patient sitting up in chair, with Zoll Life Vest on.
--- NOTE | 2019-10-14 18:20 | NUR ---
Patient siting up in chair, eating dinner.
--- NOTE | 2019-10-14 19:35 | NUR ---
Opening Shift Note Assumed care of patient, awake and alert x4. No S/S of distress/SOB or pain. Instructed on POC and to call for assist PRN. Call light is within reach, side rails up x2, bed is in the lowest position, brakes are locked. Will continue to monitor for changes Q1hr and PRN.
--- NOTE | 2019-10-14 21:15 | NUR ---
AMA to smoke Patient's states he wants to go outside, not to smoke but just to walk around. Instructed on hospital policy, he verbalized understanding. The paper is signed and in the front of the hard chart.
--- NOTE | 2019-10-14 21:38 | NUR ---
Patient is back in his room.
[2019-10-14 22:00] VITALS: BP 149/107
[2019-10-14] MEDS: FAMOTIDINE 20 MG TAB PO SCH (22:00)
[2019-10-14] MEDS: ATORVASTATIN 20 MG TAB PO SCH (22:11)
[2019-10-15 05:00] VITALS: BP 127/77
--- NOTE | 2019-10-15 05:52 | NUR ---
Refusing Apresoline 0600/ AWARE Patient is refusing the 0600 Apresoline 50 mg. His BP is 127/77, patient states his blood pressure got too low yesterday morning and he felt dizzy. He is scheduled for dialysis later today. MD Calzada was informed of patient refusing medication, he said, "His blood pressure is normal, just monitor."
[2019-10-15] MEDS: hydrALAZINE HCL 25 MG TAB PO SCH ×3 (05:55→22:00)
[2019-10-15 06:30] LABS: Hematocrit 36.5 % (41.0-53.0); Hemoglobin 11.6 g/dL (13.5-17.5)
[2019-10-15] MEDS ORDERED: SODIUM CHL 0.9% 1000 ML BAG XX ONE (07:00)
[2019-10-15 08:00] VITALS: BP 138/76
--- NOTE | 2019-10-15 08:05 | NUR ---
Opening Shift Note Assumed care of patient, awake, alert and oriented x4. No S/S of distress/SOB or pain. Instructed on POC and to call for assistance PRN. Bed at lowest locked position and call light within reach. Will continue to monitor for changes Q1hr and PRN.
[2019-10-15] MEDS: DOCUSATE SOD 100 MG CAP PO SCH ×2 (08:48→22:00)
[2019-10-15] MEDS: CALCIUM ACETATE 667 MG CAP PO SCH ×3 (08:48→18:24)
[2019-10-15] MEDS: B-COMPLEX W/ C & FOLIC ACID(NEPHROVITE TAB) PO SCH (08:48)
[2019-10-15] MEDS: CARVEDILOL 12.5 MG TAB PO SCH ×2 (08:49→22:00)
[2019-10-15] MEDS: SACUBITRIL-VALSARTAN 24mg/26mg TAB PO SCH ×2 (08:49→22:00)
[2019-10-15] MEDS: ISOSORBIDE MONONITRATE ER 60 MG TAB PO SCH (08:50)
[2019-10-15] MEDS: ALLOPURINOL 100 MG TAB PO SCH (08:51)
[2019-10-15 09:00] VITALS: BP 138/76
[2019-10-15] MEDS: IRON SUCROSE COMPLEX 200 MG in SODIUM CHL 0.9% 100 ML IV SCH (12:00)
[2019-10-15 13:00] VITALS: BP 108/70
--- NOTE | 2019-10-15 13:22 | NUR ---
Nutrition Followup Notes Pt wt is 113.0 kg Pt appetite is good aeb ave 96% x 6 PO intake per RN doc. Pt with no noted distress or complaints when rounded this morning. Will continue to closely monitor pertinent labs, PO intake and skin status prn. Will followup in 2-3 days Est Energy needs: 3078-7063 kcals (17-20 kcal/kgBW) Est Protein needs: 123-135 gms/day (1.1-1.2 gm/kgBW) Will continue to monitor and reassess prn. LABS: BUN 34 H, CR 4.26 H, GFR 16 L, ALB 2.8 L GI: Last BM noted on 10/14/19 per RN doc. BS: 20 low risk. Please refer to wound assessment report for full details. PES: Problem 1). Obesity r/t energy intake in excess of energy needs aeb 149% IBW and BMI of 35.5 kg/m2 2) Altered nutrition related lab values r/t current/chropnic medical condition aeb elev RFTs, low GFR, hypoproteinemia, hypoalbuminemia Comments Will continue to closely monitor pertinent labs, PO intake and skin status prn. Will followup in 3-5 days 1) Continue to closely monitor pt PO intake to meet at least 75% of meals 2) Continue current plan of care
[2019-10-15 16:59] VITALS: BP 130/76
[2019-10-15] MEDS: ERGOCALCIFEROL 50,000 UNIT(1.25MG) CAP PO SCH (18:23)
--- NOTE | 2019-10-15 18:36 | NUR ---
RE WOUND CONSULT: Advised SHI Dixon if dried blood is concern for Trevor cath, to cleansed with NS if ok with MD. Wound care not to mess with patient's catheter site. Advised to follow catheter dressing per protocol. Per SHI Dixon she will cancel the consult.
--- NOTE | 2019-10-15 19:26 | NUR ---
CLOSING NOTE Patient comfortably resting in bed. No s/s of distress/sob noted/stated. Bed at lowest locked position and call light within reach. Bed at lowest locked position, bed side rails up x2 and call light within reach. Care endorsed to Zora OSULLIVAN.
[2019-10-15] MEDS ORDERED: EPOETIN ALFA 10,000 UNIT/1 ML VIAL SC ONE (21:00)
[2019-10-15] MEDS: ATORVASTATIN 20 MG TAB PO SCH (22:00)
[2019-10-15] MEDS: FAMOTIDINE 20 MG TAB PO SCH (22:09)
[2019-10-15] MEDS: TEMAZEPAM 15 MG CAP PO PRN (22:09)
[2019-10-15 23:07] VITALS: BP 114/72
[2019-10-16 05:00] VITALS: BP 150/84
[2019-10-16] MEDS: hydrALAZINE HCL 25 MG TAB PO SCH ×3 (06:09→22:25)
[2019-10-16 07:00] LABS: Calcium 8.3 mg/dL (8.5-10.1); Potassium 3.2 mmol/L (3.5-5.1)
[2019-10-16 07:02] LABS: BUN/Creatinine Ratio 7.6
[2019-10-16 08:00] VITALS: BP 146/88
[2019-10-16] MEDS: CALCIUM ACETATE 667 MG CAP PO SCH ×3 (08:07→17:16)
[2019-10-16 09:00] VITALS: BP 146/88
[2019-10-16] MEDS: DOCUSATE SOD 100 MG CAP PO SCH ×2 (10:36→22:00)
[2019-10-16] MEDS: CARVEDILOL 12.5 MG TAB PO SCH ×2 (10:38→22:24)
[2019-10-16] MEDS: SACUBITRIL-VALSARTAN 24mg/26mg TAB PO SCH ×2 (10:38→22:37)
[2019-10-16] MEDS: ISOSORBIDE MONONITRATE ER 60 MG TAB PO SCH (10:39)
[2019-10-16] MEDS: ALLOPURINOL 100 MG TAB PO SCH (10:40)
[2019-10-16] MEDS: B-COMPLEX W/ C & FOLIC ACID(NEPHROVITE TAB) PO SCH (10:40)
[2019-10-16] MEDS: IRON SUCROSE COMPLEX 200 MG in SODIUM CHL 0.9% 100 ML IV SCH (11:24)
[2019-10-16 13:00] VITALS: BP 153/91
[2019-10-16 17:00] VITALS: BP 142/97
--- NOTE | 2019-10-16 19:30 | NUR ---
Opening Shift Note Assumed care of patient, awake and alert x4. Patient denies pain or shortness of breath at this time. Instructed on plan of care and to call for assistance as needed, patient verbalized understanding. Bed is locked in lowest position, side rails x 2 are up, and call light is within reach.
[2019-10-16 22:00] VITALS: BP 147/86
[2019-10-16] MEDS: ATORVASTATIN 20 MG TAB PO SCH (22:25)
[2019-10-16] MEDS: FAMOTIDINE 20 MG TAB PO SCH (22:26)
[2019-10-17 05:00] VITALS: BP 129/85
[2019-10-17 06:00] VITALS: BP 120/79
[2019-10-17] MEDS: hydrALAZINE HCL 25 MG TAB PO SCH ×3 (06:00→22:00)
--- NOTE | 2019-10-17 07:10 | NUR ---
Opening Shift Note: Assumed care of patient, awake and alert. No S/S of distress/SOB or pain. Bed in lowest locked position, side rails up x2, call light within reach. Patient instructed on POC and to call for assist PRN, will continue to monitor for changes Q1hr and PRN.
[2019-10-17] MEDS: CALCIUM ACETATE 667 MG CAP PO SCH ×3 (08:07→17:51)
[2019-10-17 09:00] VITALS: BP 146/86
[2019-10-17] MEDS: DOCUSATE SOD 100 MG CAP PO SCH ×2 (10:01→22:16)
[2019-10-17] MEDS: CARVEDILOL 12.5 MG TAB PO SCH ×2 (10:02→22:18)
[2019-10-17] MEDS: ISOSORBIDE MONONITRATE ER 60 MG TAB PO SCH (10:03)
[2019-10-17] MEDS: B-COMPLEX W/ C & FOLIC ACID(NEPHROVITE TAB) PO SCH (10:04)
[2019-10-17] MEDS: SACUBITRIL-VALSARTAN 24mg/26mg TAB PO SCH ×2 (10:04→22:17)
[2019-10-17] MEDS: ALLOPURINOL 100 MG TAB PO SCH (10:04)
[2019-10-17] MEDS: IRON SUCROSE COMPLEX 200 MG in SODIUM CHL 0.9% 100 ML IV SCH (11:46)
--- NOTE | 2019-10-17 13:07 | NUR ---
IV insertion: IV access obtained, via clean sterile technique by inserting 20 gauge catheter at right upper arm after 2 attempts. IV secured properly. No trauma to site. Patient tolerated well. IV removal: Left forearm IV DC'd with clean sterile technique, catheter fully intact. Pressure dressing applied to site. Patient tolerated well.
[2019-10-17 17:00] VITALS: BP 136/89
--- NOTE | 2019-10-17 19:14 | NUR ---
CLOSING NOTE: Patient resting in bed, no S/S of distress at this time. Care endorsed to NOC RN
--- NOTE | 2019-10-17 20:03 | NUR ---
pt AMA to outside. no distress noted or expressed.
--- NOTE | 2019-10-17 20:46 | NUR ---
paged security. pt remains off unit.
--- NOTE | 2019-10-17 21:11 | NUR ---
pt back on unit with security. stating "i go out all the time, never been a problem", this nurse educated pt on dangers of being off unit, to which he replied "is that it, or you gonna lecture me more". pt no complaints. this nurse updated pt on plan of care. pt on room air no distress noted or expressed. pt denied any pain. pt has life vest on. bed locked, low and 2x rails up. call light in reach, this nurse encouraged pt to call as needed.
[2019-10-17 21:59] VITALS: BP 125/76
[2019-10-17] MEDS: ATORVASTATIN 20 MG TAB PO SCH (22:17)
[2019-10-17] MEDS: FAMOTIDINE 20 MG TAB PO SCH (22:17)
[2019-10-18 04:43] VITALS: BP 141/70
[2019-10-18] MEDS: hydrALAZINE HCL 25 MG TAB PO SCH ×3 (06:30→21:59)
--- NOTE | 2019-10-18 07:15 | NUR ---
Opening Shift Note: Assumed care of patient, awake and alert. No S/S of distress/SOB or pain. Bed in lowest locked position, side rails up x 2, call light within reach. Patient instructed on POC and to call for assist PRN, will continue to monitor for changes Q1hr and PRN.
[2019-10-18] MEDS: CALCIUM ACETATE 667 MG CAP PO SCH ×3 (07:54→17:18)
[2019-10-18 08:00] VITALS: BP 144/82
[2019-10-18] MEDS: DOCUSATE SOD 100 MG CAP PO SCH ×2 (09:49→21:57)
[2019-10-18] MEDS: B-COMPLEX W/ C & FOLIC ACID(NEPHROVITE TAB) PO SCH (09:49)
[2019-10-18] MEDS: ALLOPURINOL 100 MG TAB PO SCH (09:50)
[2019-10-18] MEDS: SACUBITRIL-VALSARTAN 24mg/26mg TAB PO SCH ×2 (10:00→21:58)
[2019-10-18] MEDS: CARVEDILOL 12.5 MG TAB PO SCH ×2 (10:00→21:58)
[2019-10-18] MEDS: ISOSORBIDE MONONITRATE ER 60 MG TAB PO SCH (10:00)
--- NOTE | 2019-10-18 10:00 | NUR ---
1000 BLOOD PRESSURE MEDICATIONS HELD PENDING DIALYSIS. DR. CHARLES.
[2019-10-18] MEDS: IRON SUCROSE COMPLEX 200 MG in SODIUM CHL 0.9% 100 ML IV SCH (11:58)
[2019-10-18 12:00] VITALS: BP 143/113
[2019-10-18 16:44] VITALS: BP 159/102
[2019-10-18] MEDS: ATORVASTATIN 20 MG TAB PO SCH (21:57)
[2019-10-18] MEDS: FAMOTIDINE 20 MG TAB PO SCH (21:59)
[2019-10-18 22:00] VITALS: BP 165/95
[2019-10-18] MEDS: TEMAZEPAM 15 MG CAP PO PRN (22:13)
[2019-10-19] VITALS (7 sets, daily range): BP systolic 105–151; BP diastolic 70–94
--- NOTE | 2019-10-19 03:31 | NUR ---
CLOSING NOTE: Patient sleeping in bed. No S/S of pain, distress or SOB at this time. Care endorsed.
--- NOTE | 2019-10-19 03:35 | NUR ---
PT CARE RESUMED REPORT RECEIVED FROM NOEMI RN, PT CURRENTLY SLEEPING, BREATHING EVEN AND UNLABORED, CURRENTLY ON RA, IV PATENT AND BENIGN, RIGHT UPPER CHEST TUNNELED DIALYSIS CATHETER SITE CDI, NO CURRENT C/O SOB, CP OR ANY OTHER DISCOMFORT, CALL LIGHT WITHIN REACH, INSTRUCTED TO CALL FOR ASSISTANCE, PT VERBALIZED UNDERSTANDING,
[2019-10-19 06:07] LABS: Magnesium 2.4 mg/dL (1.6-2.6); Potassium 3.6 mmol/L (3.5-5.1)
[2019-10-19] MEDS: hydrALAZINE HCL 25 MG TAB PO SCH ×3 (06:25→21:55)
[2019-10-19] MEDS: CALCIUM ACETATE 667 MG CAP PO SCH ×3 (07:49→18:12)
[2019-10-19] MEDS: ALLOPURINOL 100 MG TAB PO SCH ×2 (10:00→18:13)
--- NOTE | 2019-10-19 10:33 | NUR ---
MD DR ENRIQUEZ AWARE, CALLED [facility] AND NO NEW UPDATED ON MEDICAL INSURANCE, AND OR CHAIR TIME ARRANGEMENT, PATIENT SCHEDULED FOR DIALYSIS TODAY
[2019-10-19] MEDS ORDERED: SODIUM CHL 0.9% 1000 ML BAG XX ONE (12:00)
--- NOTE | 2019-10-19 14:45 | NUR ---
DIALYSIS NURSE AT BEDSIDE FOR TX
--- NOTE | 2019-10-19 15:58 | NUR ---
D/C Planning Received a follow up call from Kavitha with [facility] at 9:28 advising me patient insurance is clear and she is provide me with chair time. Placed follow up call at 12:15 spoke to Kavitha. Per Kavitha they are still working on chair time. Placed another follow up call at 14:10 left a voicemail to Kavitha requesting update on chair time. Placed another follow up call at 16:02 spoke to Kavitha. Per Kavitha patient chair time will be Friday, and Friday at 15:00pm. First treatment will be 10/21/2019 at 14:30 for intake address: [id number] [address] Ph:).
--- NOTE | 2019-10-19 18:00 | NUR ---
DIALYSIS COMPLETE VS 160/108, P 85, 2L REMOVED, PT AWAKE, AXOX4, NO DISTRESS NOTED, DAILY MEDICATIONS TO BE ADMINISTERED, CONT CARE
[2019-10-19] MEDS: B-COMPLEX W/ C & FOLIC ACID(NEPHROVITE TAB) PO SCH (18:12)
[2019-10-19] MEDS: ISOSORBIDE MONONITRATE ER 60 MG TAB PO SCH (18:12)
[2019-10-19] MEDS: DOCUSATE SOD 100 MG CAP PO SCH ×2 (18:12→22:04)
[2019-10-19] MEDS: SACUBITRIL-VALSARTAN 24mg/26mg TAB PO SCH ×2 (18:12→22:03)
[2019-10-19] MEDS: CARVEDILOL 12.5 MG TAB PO SCH ×2 (18:13→21:54)
--- NOTE | 2019-10-19 19:15 | NUR ---
OPENING SHIFT NOTE Assumed care of patient who is A&O x4. Currently on RA with no s/s of distress. Denies pain at this time. Tunneled cath in right upper chest noted. Dressing is CDI. PIV in right upper arm present. Flushed with NS. Patient reports discomfort with flushing area superior to insertion is firm. Patient declines initiation of new IV. No IV medications are scheduled. Patient is ambulatory at baseline without the use of assistive devices. POC discussed and patient verbalizes understanding. Bed is in low locked position with side rails up x2. Call light is within reach and patient instructed to call for assistance when needed. Will continue to monitor for changes PRN.
--- NOTE | 2019-10-19 20:20 | NUR ---
Patient off unit to smoke.
[2019-10-19] MEDS: ATORVASTATIN 20 MG TAB PO SCH (22:03)
[2019-10-19] MEDS: FAMOTIDINE 20 MG TAB PO SCH (22:04)
[2019-10-20 05:00] VITALS: BP 112/67
[2019-10-20] MEDS: hydrALAZINE HCL 25 MG TAB PO SCH (05:49)
[2019-10-20 09:00] VITALS: BP 115/76
[2019-10-20] MEDS: DOCUSATE SOD 100 MG CAP PO SCH (09:12)
[2019-10-20] MEDS: CALCIUM ACETATE 667 MG CAP PO SCH (09:12)
[2019-10-20] MEDS: CARVEDILOL 12.5 MG TAB PO SCH (09:13)
[2019-10-20] MEDS: ISOSORBIDE MONONITRATE ER 60 MG TAB PO SCH (09:14)
[2019-10-20] MEDS: SACUBITRIL-VALSARTAN 24mg/26mg TAB PO SCH (09:14)
[2019-10-20] MEDS: B-COMPLEX W/ C & FOLIC ACID(NEPHROVITE TAB) PO SCH (09:15)
[2019-10-20] MEDS: ALLOPURINOL 100 MG TAB PO SCH (09:15)
[2019-10-20 12:28] VITALS: BP 115/76
--- NOTE | 2019-10-20 13:22 | NUR ---
Discharge instructions given as ordered. Encourage to follow up with PMD as instructed. All questions and concerns addressed. Patient verbalized understanding. Medication reconciliation form completed and copy given to patient. Home medications held in Pharmacy returned to patient, and needed vaccines given. IV removed with catheter intact, pressure dressing applied, life vest on patient, dialysis chair time given. Telemetry unit returned to ICU. Patient taken to vehicle via wheelchair with all personal belongings, accompanied by staff to family member. No distress noted at time of departure.
[2019-10-21] MEDS ORDERED: SODIUM CHL 0.9% 1000 ML BAG XX ONE (07:00)
== END 2019-10-20 13:14 | disposition home or self-care (01) | DRG 199 ==
LOC: ER 16:00 → TELE 16:01 → TELE-WESTW 21:53
PROVIDERS: ADMIT Nurse Practitioner Acute Care; ATTEND Internal Medicine
PROC: 0JH63XZ Insertion of Tunneled Vascular Access Device into Chest Subcutaneous Tissue and Fascia, Percutaneous Approach (ICD-10-PCS; principal; 2019-10-08)
PROC: 02HV33Z Insertion of Infusion Device into Superior Vena Cava, Percutaneous Approach (ICD-10-PCS; 2019-10-08)
PROC: B5181ZA Fluoroscopy of Superior Vena Cava using Low Osmolar Contrast, Guidance (ICD-10-PCS; 2019-10-08)
PROC: B548ZZA Ultrasonography of Superior Vena Cava, Guidance (ICD-10-PCS; 2019-10-08)
PROC: 5A1D70Z Performance of Urinary Filtration, Intermittent, Less than 6 Hours Per Day (ICD-10-PCS; 2019-10-09)
PROC: 5A1D70Z Performance of Urinary Filtration, Intermittent, Less than 6 Hours Per Day (ICD-10-PCS; 2019-10-11)
PROC: 5A1D70Z Performance of Urinary Filtration, Intermittent, Less than 6 Hours Per Day (ICD-10-PCS; 2019-10-13)
PROC: 5A1D70Z Performance of Urinary Filtration, Intermittent, Less than 6 Hours Per Day (ICD-10-PCS; 2019-10-15)
DX: I16.0 Hypertensive urgency (principal); I21.A1 Myocardial infarction type 2; I50.43 Acute on chronic combined systolic (congestive) and diastolic (congestive) heart failure; N17.9 Acute kidney failure, unspecified; E87.2 Acidosis; R65.10 Systemic inflammatory response syndrome (SIRS) of non-infectious origin without acute organ dysfunction; N18.6 End stage renal disease; E66.01 Morbid (severe) obesity due to excess calories; I13.2 Hypertensive heart and chronic kidney disease with heart failure and with stage 5 chronic kidney disease, or end stage renal disease; D63.1 Anemia in chronic kidney disease; D72.829 Elevated white blood cell count, unspecified; E55.9 Vitamin D deficiency, unspecified; Z99.2 Dependence on renal dialysis; Z68.35 Body mass index [BMI] 35.0-35.9, adult
CPT/HCPCS: 36415; 70450; 71046; 76700; 76942; 80048; 80053; 80061; 81001; 82088; 82306; 82550; 82570; 82728; 83540; 83550; 83735; 83880; 83970; 84100; 84132; 84244; 84443; 84484; 84550; 85014; 85018; 85025; 85610; 85730; 86141; 86704; 86706; 86708; 86803; 87340; 90935; 93005; 93306; 93970; 99152; 99153; 99291; C1769; G0378; J0885; J1642; J1756; J2250

== ENCOUNTER 2019-11-18 09:50 | Emergency (ER) | payer MEDICAID ==
[~2019-11-18] VITALS: Ht 177.8 cm; Wt 114.3 kg
[~2019-11-18 09:50] MED LIST: ALL100T PO; ASP81EC PO; ATOR20TA PO; CALC667C5 PO; CARV25TA PO; CHOL400T13 PO; HYDR50TA15 PO; ISO60SRT PO; NEPVITT PO; PANT40TA2 PO; SACU1TAB PO
[2019-11-18 11:00] LABS: Basophils # (auto) 0.1 10 ^3/uL (0-0.2); Basophils % (auto) 0.7 % (0.0-2.0); Eosinophils # (auto) 0.2 10 ^3/uL (0-0.8); Eosinophils % (auto) 1.7 % (0.0-7.0); Hematocrit 36.6 % (41.0-53.0); Hemoglobin 11.8 g/dL (13.5-17.5); Lymphocytes # (auto) 1.1 10 ^3/uL (0.4-5.4); Lymphocytes % (auto) 11.9 % (10.0-50.0); Mean Corpuscular Hemoglobin 29.9 pg (28.0-32.0); Mean Corpuscular Hgb Conc. 32.3 g/dL (32.0-36.0); Mean Corpuscular Volume 92.4 fL (80.0-100.0); Monocytes # (auto) 0.5 10 ^3/uL (0-1.3); Neutrophils # (auto) 7.7 10 ^3/uL (1.6-8.6); Neutrophils % (auto) 80.7 % (37.0-80.0); Nucleated Red Blood Cells % 0.1 %; Platelet Count (auto) 209 10^3/uL (140-450); Red Blood Cells 3.96 10^6/uL (4.5-5.90); Red Cell Distribution Width 14.4 % (11.8-14.3); White Blood Cell 9.6 10^3/uL (4.4-10.8)
[2019-11-18 11:16] LABS: INR 0.98 (0.9-1.15); Partial Thromboplastin Time 25.4 sec (23.64-32.05)
[2019-11-18 11:19] LABS: Albumin 3.7 g/dL (3.4-5.0); Calcium 8.1 mg/dL (8.5-10.1); Potassium 4.3 mmol/L (3.5-5.1)
[2019-11-18 11:24] LABS: BUN/Creatinine Ratio 10.4; Bilirubin, Total 0.5 mg/dL (0.2-1.0); Total Protein 7.9 g/dL (6.4-8.2)
[2019-11-18] MEDS ORDERED: CATHFLO ACTIVASE (ALTEPLASE) 2 MG VIAL IV STA (11:33)
[2019-11-18] MEDS ORDERED: SODIUM CHL 0.9% 1000 ML BAG XX ONE (12:00)
[2019-11-18 12:28] LABS: Urine Bacteria NONE SEEN /hpf (None Seen); Urine Blood TRACE /uL (Negative); Urine Specific Gravity 1.011 (1.001-1.035); Urine WBC 33 /hpf (0 - 3)
[2019-11-18] MEDS ORDERED: MORPHINE SULF INJ 2 MG/ML SYRINGE 1ML IV PRN (14:00)
[2019-11-18] MEDS ORDERED: NITROGLYCERIN 0.4 MG SL TAB SL PRN (14:00)
[2019-11-18 16:00] VITALS: BP 161/109
== END 2019-11-18 18:39 | disposition home or self-care (01) ==
LOC: ER 09:50 → TELE 09:51 → UNDOADMIN 09:51 → ER 18:39
DX: I13.2 Hypertensive heart and chronic kidney disease with heart failure and with stage 5 chronic kidney disease, or end stage renal disease (principal); N18.6 End stage renal disease; I50.9 Heart failure, unspecified; Z99.2 Dependence on renal dialysis
CPT/HCPCS: 36415; 71045; 80053; 81001; 83880; 84484; 85025; 85610; 85730; 96374; 99285; J1642; J2997; 90935

== ENCOUNTER 2021-05-14 10:28 | Emergency (ER) | payer MEDICAID, OTHER ==
[~2021-05-14] VITALS: Ht 177.8 cm; Wt 124.7 kg
[~2021-05-14 10:28] MED LIST changes: -ASP81EC PO; +ASPI-394 PO; +B-CO1TAB33 PO; -NEPVITT PO
[2021-05-14] MEDS ORDERED: CATHFLO ACTIVASE (ALTEPLASE) 2 MG VIAL IV ONE (11:00)
[2021-05-14 12:38] LABS: Basophils # (auto) 0 10 ^3/uL (0-0.2); Basophils % (auto) 0.2 % (0.0-2.0); Eosinophils # (auto) 0.1 10 ^3/uL (0-0.8); Eosinophils % (auto) 1.3 % (0.0-7.0); Hematocrit 35.6 % (41.0-53.0); Hemoglobin 11.8 g/dL (13.5-17.5); Lymphocytes # (auto) 1.3 10 ^3/uL (0.4-5.4); Lymphocytes % (auto) 15.5 % (10.0-50.0); Mean Corpuscular Hgb Conc. 33.1 g/dL (32.0-36.0); Mean Corpuscular Volume 96.8 fL (80.0-100.0); Monocytes # (auto) 0.6 10 ^3/uL (0-1.3); Monocytes % (auto) 7.8 % (0.0-12.0); Neutrophils # (auto) 6.2 10 ^3/uL (1.6-8.6); Neutrophils % (auto) 75.2 % (37.0-80.0); Red Blood Cells 3.67 10^6/uL (4.5-5.90); Red Cell Distribution Width 14.3 % (11.8-14.3); White Blood Cell 8.3 10^3/uL (4.4-10.8)
[2021-05-14 12:47] LABS: Potassium 5.3 mmol/L (3.5-5.1)
[2021-05-14 12:53] LABS: Albumin 3.5 g/dL (3.4-5.0); BUN/Creatinine Ratio 12.4; Bilirubin, Total 0.2 mg/dL (0.2-1.0); Calcium 8.1 mg/dL (8.5-10.1); Total Protein 7.1 g/dL (6.4-8.2)
[2021-05-14 14:40] VITALS: BP 180/100
== END 2021-05-14 15:20 | disposition home or self-care (01) ==
LOC: ER 10:28
DX: T82.49XA Other complication of vascular dialysis catheter, initial encounter (principal); I12.0 Hypertensive chronic kidney disease with stage 5 chronic kidney disease or end stage renal disease; N18.6 End stage renal disease; Y92.89 Other specified places as the place of occurrence of the external cause
CPT/HCPCS: 36415; 80053; 85025; 96374; 99285; J2997